=== PATIENT | female | born 1975 | race Caucasian/White ===

== ENCOUNTER 2022-06-21 10:04 | Emergency (ER) | payer OTHER, SELFPAY ==
--- NOTE | 2022-06-21 10:09 | ED.SKABFB ---
HPI - Skin/Abscess/Foreign Bdy General Chief complaint: Skin/Abscess/Foreign Body Stated complaint: Splinter in foot Time Seen by Provider: 06/21/22 10:20 Source: patient Mode of arrival: ambulatory Limitations: no limitations History of Present Illness HPI narrative: Ms. Amezcua is a 46-year-old female patient presenting to the clinic today with complaints of possible foreign body in her right foot. She reports that she got out of her pool yesterday and stepped on a stick and the stick punctured the bottom of her midfoot by her second toe. She was able to remove the stick but is concerned that there may be some remnants still in her foot. Tetanus is unknown Related Data Home Medications Medication Instructions Recorded Confirmed amitriptyline 100 mg tablet 100 mg PO ONCE 10/01/20 06/21/22 atorvastatin 20 mg tablet 20 mg PO DAILY 10/01/20 06/21/22 citalopram 40 mg tablet 40 mg PO DAILY 10/01/20 06/21/22 Allergies Allergy/AdvReac Type Severity Reaction Status Date / Time No Known Allergies Allergy Unknown Verified 06/21/22 10:27 Review of Systems Review of Systems: Pertinent positives per HPI. Patient denies any fever, chills, rash, headache, visual changes, dizziness, cough, runny nose, sore throat, shortness of breath, chest pain, palpitations, nausea, vomiting, diarrhea, constipation, abdominal pain, or any urinary issues. [facility] Past Medical History Medical History Anxiety Diabetes History of in vitro fertilization At [facility] in 2004. Hx of ectopic At by Dr. Hyde (right side). Hypercholesteremia Surgical History Surgical History Hx laparoscopic cholecystectomy 2007- by Dr. Joyce. Hx of section At [place] in 2004. Hx of hysterectomy at in [address] Kim Blanco Hx of unilateral salpingectomy Right side at [place] [address] Kim Blanco Family History Family History Father Hypertension Heart disease High cholesterol Mother Hypertension Cerebrovascular accident High cholesterol Other Cancer of kidney Diabetes mellitus Social History Social History Smoking packs per day: 0.5 Smoking cigarettes per day: 10.0 Years smoked: 26 Smoking pack-years: 13.00 Smoking status: Current every day smoker Tobacco type: cigarettes Alcohol intake: never Comments At the time of my signature, I reviewed and agree with the nursing past medical, surgical, social, and family history. There is no relevant family history pertinent to the patient complaint. Exam Narrative: General: Well-developed, well nourished, in no apparent distress Head: Normocephalic, atraumatic. Cardio: Regular rate and rhythm, s1 and s2 normal, no murmur appreciated. Resp: Clear to auscultation bilaterally, no rhonchi, rales, wheezing or rubs. Integumentary: [place], warm, and dry, intact without lesion, small puncture wound to the right distal midfoot just below the second metatarsal with mild brown possible foreign body. Area was injected with lidocaine and a small incision was made for exploring and this appears to be just pigmentation from the stick in the skin as there was no foreign body palpable CHET and Band-Aid was applied and tetanus was updated Course Course Emergency Course: Portions of this record may have been created with voice recognition software. Level of Care: Express Care Visit Vital Signs Vital signs: Vital signs reviewed MDM - Skin/Abscess/Foreign Bdy MDM Narrative Medical decision making narrative: At the time of visit patient is resting comfortably on the exam table. A small incision was made to her right plantar distal mid foot just below her second toe. No foreign body was palpated. Tetanus shot was updated. T
[2022-06-21 10:13] VITALS: BP 146/78; PULSE 97; RESP 18; TEMP 37.1; O2SAT 99
[2022-06-21] MEDS: LIDOCAINE HCL 1% LOCAL INJ 20 ML VIAL 5 ML INFILTRATE (10:31)
[2022-06-21] MEDS: TETANUS,DIPHTHERIA,AC PERTUSSIS ADULT (0.5 ML) BOOSTRIX IM (10:44)
== END 2022-06-21 10:47 | disposition home or self-care (01) ==
PROVIDERS: Emergency Provider Nurse Practitioner Family; PCP Family Medicine
DX: S91.331A Puncture wound without foreign body, right foot, initial encounter (principal); W22.8XXA Striking against or struck by other objects, initial encounter; Z23 Encounter for immunization; E11.9 Type 2 diabetes mellitus without complications; E78.00 Pure hypercholesterolemia, unspecified; F41.9 Anxiety disorder, unspecified; F17.210 Nicotine dependence, cigarettes, uncomplicated
CPT/HCPCS: 90471; 90715; 99212; G0463

== ENCOUNTER → 2022-06-25 15:49 | Outpatient (CLI) | payer OTHER, SELFPAY ==
--- NOTE | ~2022-06-25 | US_ITS ---
EXAMINATION: US soft tissue head and neck INDICATION: Palpable lump of the posterior left neck TECHNIQUE: Limited high-resolution ultrasound is performed in the area of clinical concern. COMPARISON: CT, 09/15/2018 FINDINGS: No sonographic correlate is identified for the reported palpable abnormality of the neck. N ormal subcutaneous tissues are seen. IMPRESSION: 1. No sonographic correlate for the palpable abnormality of the left neck. Reviewed, dictated and finalized at location B.
== END ==
PROVIDERS: PCP Nurse Practitioner Family; Visit Provider Nurse Practitioner Family
DX: M54.2 Cervicalgia (principal)
CPT/HCPCS: 76536

== ENCOUNTER 2024-02-18 18:28 | Emergency (ER) | payer OTHER, SELFPAY ==
--- NOTE | ~2024-02-18 | XR_ITS ---
EXAMINATION: XR hip RT 2V w AP pelvis INDICATION: Right hip pain TECHNIQUE: AP view the pelvis and two views of the right hip are obtained. COMPARISON: 09/17/2019 FINDINGS: Bone alignment is normal. There is no fracture. There is mild osteoarthritis of the sacroil iac joints. IMPRESSION: 1. No acute osseous abnormality. Reviewed, dictated and finalized at location F.
[2024-02-18 18:40] VITALS: BP 147/87; PULSE 100; RESP 16; TEMP 37; O2SAT 98
--- NOTE | 2024-02-18 18:48 | ED.EXTPRO ---
HPI - Extremity Problem General Chief complaint: Extremity Problem,Nontraumatic Stated complaint: Hip Pain Time Seen by Provider: 02/18/24 18:35 Source: patient Mode of arrival: ambulatory Limitations: no limitations History of Present Illness HPI Narrative: Patient is a 48-year-old female who presents with right hip pain for several months. Patient also reports months ago she fell and hip pain has been worse since then. Patient states hip pain is now constant and she is unable to get comfortable in bed due to pain. Patient has been taking Tylenol and ibuprofen with no relief. Patient states she does not take stronger opiates or muscle relaxers due to side effects. Patient reports pain is mostly lateral but does radiate into the groin at times. Denies any numbness, weakness or tingling to lower extremity. Patient has not been seen by PCP for symptoms. Does state PCP ordered palpation imaging that she has not completed. Patient states she has chronic back issues has had sciatica past but this feels different. Related Data Home Medications Medication Instructions Recorded Confirmed amitriptyline 100 mg tablet 100 mg PO ONCE 10/01/20 02/18/24 citalopram 40 mg tablet 40 mg PO DAILY 10/01/20 02/18/24 Allergies Allergy/AdvReac Type Severity Reaction Status Date / Time No Known Allergies Allergy Unknown Verified 02/18/24 18:32 Review of Systems Review of Systems: All systems reviewed & are unremarkable except as noted in HPI and below Constitutional: Constitutional: Denies body ache(s), Denies chills, Denies fatigue, Denies fever(s), Denies headache(s), Denies malaise and Denies weakness Eyes: Eyes: Denies blurry vision, Denies irritation and Denies loss of vision ENT: Denies otalgia, Denies headache(s), Denies nasal discharge, Denies sinus pain and Denies sore throat Cardiovascular: Cardiovascular: Denies chest pain, Denies irregular heart rhythm and Denies dyspnea Respiratory: Respiratory: Denies dyspnea Gastrointestinal: Gastrointestinal: Denies abdominal pain, Denies melena, Denies hematochezia, Denies diarrhea, Denies nausea and Denies vomiting Musculoskeletal: Musculoskeletal: Denies back pain, Denies myalgias and Reports arthralgias Integumentary/Breasts: Skin/Breast: Denies pruritus and Denies rash Neurologic: Denies headache(s), Denies loss of vision and Denies weakness Psychiatric: Psychiatric: Reports no additional psychiatric complaints Endocrine: Endocrine: Denies fatigue PMFSH Past Medical History Medical History Anxiety Diabetes History of in vitro fertilization At [facility] in 2004. Hx of ectopic At by Dr. Hyde (right side). Hypercholesteremia Surgical History Surgical History Hx laparoscopic cholecystectomy 2007- by Dr. Joyce. Hx of section At [place] in 2004. Hx of hysterectomy at in [address] Kim Blanco Hx of unilateral salpingectomy Right side at [place] [address] Kim Blanco Family History Family History Father Hypertension Heart disease High cholesterol Mother Hypertension Cerebrovascular accident High cholesterol Other Cancer of kidney Diabetes mellitus Social History Social History Smoking packs per day: 0.5 Smoking cigarettes per day: 10.0 Years smoked: 26 Smoking pack-years: 13.00 Smoking status: Current every day smoker Tobacco type: cigarettes Alcohol intake: never Comments At time of signature, agree with nursing past medical, surgical, social and family history. There is no relevant family history pertinent to the presenting complaint. Exam Const: General: cooperative, healthy appearing, comfortable, no acute distress and well nourished Nutritional Appearance: well nourished
== END 2024-02-18 19:55 | disposition home or self-care (01) ==
PROVIDERS: Emergency Provider Nurse Practitioner Family; PCP Family Medicine
DX: M70.61 Trochanteric bursitis, right hip (principal); F17.210 Nicotine dependence, cigarettes, uncomplicated; E11.9 Type 2 diabetes mellitus without complications; E78.00 Pure hypercholesterolemia, unspecified; F41.9 Anxiety disorder, unspecified
CPT/HCPCS: 73502; 99213; G0463

== ENCOUNTER 2024-03-09 08:10 | Outpatient (CLI) | payer OTHER, SELFPAY ==
--- NOTE | ~2024-03-09 | MR_ITS ---
MRI of the lumbar spine Clinical History: Degenerative disc disease Technique: Axial T2-weighted images, and sagittal T1-weighted, T2-weighted, and T2 fat-sat images wer e acquired. Findings: There are probable bilateral L5 pars interarticularis defects, with associated 9 mm anterol isthesis of L5 over S1. No acute fracture identified. No other subluxation seen. No suspicious bone m arrow signal abnormality seen. At L1-L2, there is no disc bulge or herniation. No spinal canal stenosis or neural foraminal narrowin g. At L2-L3, there is no disc bulge or herniation. No spinal canal stenosis or neural foraminal narrowin g. At L3-L4, there is mild degenerative disc narrowing. No disc bulge or herniation. No spinal canal rafaela nosis or neural foraminal narrowing. At L4-L5, there is small central disc protrusion with tiny annular fissure. There is moderate facet a rthropathy. No central canal stenosis or neural foraminal narrowing. At L5-S1, there is disc bulge/uncovering with moderate to advanced facet arthropathy. No central payton l stenosis. There is advanced bilateral neural foraminal narrowing. Paravertebral soft tissues are unremarkable. Impression: Bilateral L5 pars interarticularis defects, with 9 mm anterolisthesis of L5 over S1. Associated advan oanh bilateral neural foraminal narrowing at this level. Minimal degenerative change in the remainder of the lumbar spine. Reviewed, dictated and finalized at [facility]. Impression: Bilateral L5 pars interarticularis defects, with 9 mm anterolisthesis of L5 ove r S1. Associated advanced bilateral neural foraminal narrowing at this level. Minimal degenerative change in the remainder of the lumbar spine.
== END 2024-03-09 08:11 ==
LOC: GOSHIMG 08:11
PROVIDERS: PCP Family Medicine; Visit Provider Family Medicine
DX: M51.36 Other intervertebral disc degeneration, lumbar region (principal); M47.817 Spondylosis without myelopathy or radiculopathy, lumbosacral region
CPT/HCPCS: 72148

== ENCOUNTER 2024-06-15 10:20 | Outpatient (CLI) | payer OTHER, SELFPAY ==
--- NOTE | ~2024-06-15 | CT_ITS ---
Non-contrast CT scan of the Abdomen Clinical indication: Incisional hernia Technique: 2.5 mm axial scans were obtained through the abdomen without intravenous or oral contrast . Dose reduction technique was used on this scan by utilizing automated exposure control and iterativ e reconstruction technique. The dose-length product (DLP) was 503.42 mGy-cm. Findings: Images through the lung bases reveal small hiatal hernia. There is no evidence of renal or ureteral calculi. The kidneys and the ureters are nondilated. The liver, spleen, pancreas, and adrenals appear normal. Cholecystectomy clips are present. There is no aortic aneurysm. Visualized bowel loops are unremarkable. No ascites Impression: Small hiatal hernia. Reviewed, dictated and finalized at location . Impression: Small hiatal hernia.
== END 2024-06-15 10:21 ==
PROVIDERS: PCP Family Medicine; Visit Provider Surgery
DX: K44.9 Diaphragmatic hernia without obstruction or gangrene (principal); K43.2 Incisional hernia without obstruction or gangrene
CPT/HCPCS: 74150

== ENCOUNTER 2025-01-02 19:53 | Emergency (ER) | payer OTHER, SELFPAY ==
--- NOTE | ~2025-01-02 | XR_ITS ---
EXAM: XR hand LT min 3V DATE: 01/02/2025 20:19 HISTORY: pain base left palmar thumb s/p fall tonight . COMPARISON: None available. FINDINGS: Normal mineralization. No fracture or dislocation. No lytic or blastic lesion. Joint space s are maintained. No erosion or periosteal change. Soft tissues within normal limits. IMPRESSION: No acute osseous finding in the left hand. Reviewed, dictated and finalized at location K. ENTICE PHOTOGRAPHER
--- NOTE | 2025-01-02 20:01 | ED_ITS ---
HPI - Extremity Injury (Upper) General Chief Complaint: Extremity Injury, Lower Stated Complaint: right knee injury,left hand swollen Time Seen by Provider: 01/02/25 20:01 Source: patient, RN notes reviewed and old records reviewed Mode of arrival: ambulatory Limitations: no limitations History of Present Illness HPI narrative: Patient presents with complaints right knee abrasion and left hand swelling after slip and fall outdoors on same level surface 2 hours prior to arrival. She has not had any medication for her symptoms. She has not applied ice to the affected area. She is able to move the affected hand without difficulty, but states this does increase pain. She denies other injury or trauma. Voices no other concerns or complaints today. Related Data Home Medications ?Medication ?Instructions ?Recorded ?Confirmed ?Last Taken ?Type amitriptyline 100 mg tablet 100 mg PO ONCE 10/01/20 06/30/24 Unknown History citalopram 40 mg tablet 40 mg PO DAILY 10/01/20 06/30/24 Unknown History gabapentin 300 mg capsule 300 mg PO 06/30/24 06/30/24 Unknown History Allergies Allergy/AdvReac Type Severity Reaction Status Date / Time No Known Allergies Allergy Unknown Verified 01/02/25 20:17 Review of Systems Review of Systems: All systems reviewed & are unremarkable except as noted in HPI and below Constitutional: Constitutional: Reports no additional constitutional compl aints ENT: Reports system reviewed and no additional complaints, except as documented Cardiovascular: Cardiovascular: Reports no additional cardiovascular complaints Respiratory: Respiratory: Reports no additional respiratory complaints Gastrointestinal: Gastrointestinal: Reports no additional gastrointestinal complaints [facility] Past Medical History Medical History (Updated 01/02/25 @ 20:42 by Yecenia Bertrand APRN) Screening mammogram for breast cancer Diabetes Hx of ectopic At by Dr. Hyde (right side). History of in vitro fertilization At [facility] in 2004. Hypercholesteremia Anxiety Surgical History Surgical History (Updated 06/30/24 @ 10:06 by Mirian Cee CMA) Hx of appendectomy Hx of unilateral salpingectomy Right side at [place] [address] Kim Blanco Hx of hysterectomy at [place] [address] Kim Blanco Hx of section At [place] in 2004. Hx laparoscopic cholecystectomy 2007- by Dr. Joyce. Family History Family History Father Hypertension Heart disease High cholesterol Mother Hypertension Cerebrovascular accident High cholesterol Other Cancer of kidney Diabetes mellitus Social History Social History (Updated 06/30/24 @ 10:08 by Mirian Cee CMA) Smoking packs per day: 0.5 Smoking cigarettes per day: 10.0 Years smoked: 26 Smoking pack-years: 13.00 Smoking status: Current every day smoker Tobacco type: cigarettes Alcohol intake: never Substance use: current Substance use type: marijuana Last use: gummy for sleep Do You Feel Safe in your Home?: Yes Lack of Transportation: No Lack of Food: Never True Current Housing: I Have Housing Concerned About Future Housing: No Difficulty Paying Gas/Electric Bills: No Difficulty Paying for Meds: No Currently Unemployed: YES Education: Trade/Vocational Certificate Difficulty w/ Childcare or Family Care: No Living arrangements: with family Occupation/Education: retired Gender identity (if verbalized by the patient): Female Comments At the time of my signature, I reviewed and agree with the nursing past medical, surgical, social, and family history. There is no relevant family history pertinent to the patient complaint. Exam Const: General: cooperative, no acute distress, alert and awake Orientation/consciousness: oriented to person, oriented to place and oriented to time HENMT: Head: normal to inspection Resp: Effort & Inspection: normal respiratory effort and able to speak in complete sentences Auscultation: clear to auscultation bilaterally, no crackles, no rales, no rhonchi and no wheezes Cardio: Palpation: normal PMI Rate: regular rate Rhythm: regular rhythm Heart sounds: S1 normal heart sound present and S2 normal heart sound present Neuro: General: oriented to person, oriented to place and oriented to time Cranial nerves: Yes CN's II-XII intact bilaterally Psych: Appearance: grossly normal Thought process: Normal thought process present Insight: Good insight present (Psych) Judgement: Good judgement present (Psych) Course Course Level of Care: Express Care Visit Vital Signs Vital signs: Reviewed MDM - Extremity Injury (Upper) Imaging Data Attestation: I personally reviewed and interpreted this imaging study as follows: My impression: negative Radiologist's impression: [facility] [place] [address] [place] [id number] XRay Report Signed Patient: Celina Blood : 1975 MR#: [id number] Age: 49 Acct:[id number] Loc: [facility] ADM Date: 01/02/25Attending Dr: Ordering Physician: Yecenia Bertrand FNP Date of Service: 01/02/25 Procedure(s): XR hand LT min 3V Accession Number(s): [id number] cc: Yecenia Bertrand FNP; PHARMACEUTICAL ENGINEER PHYSICIAN~ EXAM: XR hand LT min 3V DATE: 01/02/2025 20:19 HISTORY: pain base left palmar thumb s/p fall tonight . COMPARISON: None available. FINDINGS: Normal mineralization. No fracture or dislocation. No lytic or blastic lesion. Joint spaces are maintained. No erosion or periosteal change. Soft tissues within normal limits. IMPRESSION: No acute osseous finding in the left hand. Reviewed, dictated and finalized at [facility] K. TAL DIRECTOR Please be advised this is a medical document. It is intended for [id number] communication. It is written in medical language and may contain unfamiliar abbreviations or verbiage. Medical documents are intended to carry relevant information, facts as evident, and the clinical opinion of the practitioner at the time of the encounter. This report may have been done utilizing a voice recognition system. Attempts have been made to correct errors. However, there may be uncorrected grammatical, spelling, and recognition errors present. The file time of this note does not necessarily represent the time of service. Dictated By: Virgilio Rivera MD 01/02/252031 Signed By: <Electronically signed by Virgilio Rivera MD in OV> 01/02/252032 Discharge Plan Discharge Clinical Impression: Hand pain, left, Abrasion Patient Disposition: Home, Self-Care Condition: Stable Instructions: Antibiotic Form, Abrasion (ED), P.R.I.C.E. Treatment (ED) Additional Instructions: Follow-up with primary care provider. Emergency department for any new or worse symptoms Patient Language: Surinamese Prescriptions: New naproxen [Naprosyn] 500 mg tablet 500 mg PO BID PRN (Reason: pain) Qty: 14 0RF No Action gabapentin 300 mg capsule 300 mg PO clobetasol 0.05 % ointment 1 applic topical QHS Qty: 30 0RF Rx Instructions: Apply vaginally QHS amitriptyline 100 mg tablet 100 mg PO ONCE citalopram 40 mg tablet 40 mg PO DAILY fluconazole 150 mg tablet 150 mg PO Q72H Qty: 2 0RF Rx Instructions: as a single dose Follow-up/Referrals: PHYSICIAN,PHARMACEUTICAL ENGINEER [Primary Care Provider] - 2 Weeks Time of Disposition: 20:43
[2025-01-02 20:05] VITALS: BP 150/80; PULSE 106; RESP 16; TEMP 37.3; O2SAT 99
== END 2025-01-02 20:47 | disposition home or self-care (01) ==
PROVIDERS: Emergency Provider Nurse Practitioner Family
DX: M79.642 Pain in left hand (principal); S80.211A Abrasion, right knee, initial encounter; W01.0XXA Fall on same level from slipping, tripping and stumbling without subsequent striking against object, initial encounter; E11.9 Type 2 diabetes mellitus without complications; E78.00 Pure hypercholesterolemia, unspecified; F41.9 Anxiety disorder, unspecified; F17.210 Nicotine dependence, cigarettes, uncomplicated; F12.90 Cannabis use, unspecified, uncomplicated
CPT/HCPCS: 73130; 99213; G0463

== ENCOUNTER 2025-03-08 16:17 | Emergency (ER) | payer OTHER, SELFPAY ==
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
[2025-03-08 16:25] VITALS: BP 148/80; PULSE 104; RESP 16; TEMP 37.1; O2SAT 100
--- OUTSIDE RECORDS SUMMARY | 2025-03-08 17:07 | XMS_ITS | Data Portability ---
Author Organization [facility] [place] Address [address] [place] [address] Assessment No assessment recorded. 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 (Lab), [address] , [place], [address], 03/08/2025 11:01:17 HBsAg (hepati tis B surface Ag), serum [address] [facility] (Lab), [address] , [place], [address], 03/08/2025 11:01:18 hepatit is C virus Ab, serum [address] [facility] (Lab), [address] , [place], [address], 03/08/2025 11:01:18 HIV 1+2 AB + HIV 1 p24 Ag, qualita tive immunoa ssay, serum [address] [facility] (Lab), [address] [place], [address], 03/08/2025 11:01:18 RPR (rapid plasma reagin) , serum [address] [facility] (Lab), [address], [place], [address], 03/08/2025 11:01:18 pap, IG + HR HPV - HPV regardl ess but if HPV is positiv e need subtypi ng 16,18/4 5 add G/MIGUEL/T RICH 2024 025 [facility] (Lab), [address], [place], [address], 03/08/2025 14:40:30 CMP, serum or plasma [address] [facility] (Lab), [address], [place], [address], 03/08/2025 11:01:18 lipid panel, blood [address] [facility] (Lab), [address], [place], [address], 03/08/2025 11:01:17 CBC w/ auto diff [address] [facility] (Lab), [address] [place], [address], 03/08/2025 11:01:17 HbA1c (hemogl obin A1c), blood [address] [facility] (Lab), [address], [place], [address], 03/08/2025 11:01:16 TSH, serum or plasma [address] [facility] (Lab), [address], [place], [address], 03/08/2025 11:01:16 25-hydr oxyvita min D2 + 25-hydr oxyvita min D3, QN, serum or plasma [address] [facility] (Lab), [address], [place], [address], 03/08/2025 11:01:18 unliste d lab - women's health swab plus, KING [address] [facility] (Lab), [address], [place], [address], 03/08/2025 11:09:15 Referral gastroe nterolo gist referra l [address] [facility], [address], [address], [place], [address], 03/08/2025 12:47:09 Procedures None recorde d. Surgeries None recorde d. Imaging US, pelvis, complet e 2024 [address], [address], [place], [address], 03/08/2025 11:41:00 MAMMO, screeni ng, digital , bilater al [address] [facility], [address], [address], [place], [address], 03/08/2025 11:41:00 Medication Orders clobeta lance 0.05 % topical ointmen t 2024 025 [facility], [address] [facility], [place], [address], 03/08/2025 11:36:11 Patient TargetsNo targets recorded. Patient InstructionsNo instructions recorded. 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 03/08/2025 10:36:05 010 Partial Hysterectomy completed [facility] 03/08/2025 10:36:55 009 Colonoscopy completed [facility] 03/08/2025 10:35:32 007 Appendectomy completed [facility] 03/08/2025 10:35:42 005 Caesarean Section completed [facility] 03/08/2025 10:24:20 996 Ectopic completed [facility] 03/08/2025 10:36:35 Dilation and Curettage completed [facility] 03/08/2025 10:24:20 Laparoscopy completed [facility] 03/08/2025 10:24:20 Cholecystectomy completed [facility] 03/08/2025 10:24:20 in vitro fertilization completed [facility] [employer] [address], [place], [address], [facility] 03/08/2025 10:45:23 oophorectomy completed [facility] [employer] [address], [place], [address], [facility] 03/08/2025 11:25:32 Imaging Results None recorded. Procedure Notes None recorded. Medical Equipment None Reported. Allergies No known drug allergies Medications Name Sig Start Date Stop Date Status Note LastModified by Organization Details LastModified Time citalopram 40 mg tablet TAKE 1 TABLET BY MOUTH ONCE DAILY active Not Available Not Available No t Available IBU 800 mg tablet Take 1 tablet 3 times a day by oral route. active Not Available Not Available No t Available fluconazole 150 mg tablet TAKE 1 TABLET BY MOUTH EVERY 72 HOURS A ONE TIME DOSE 03/08 completed Not Available Not Available Not Available hydrocodone 5 mg-acetamin ophen 325 mg tablet TAKE 1 TO 2 TABLETS BY MOUTH EVERY 4 TO 6 HOURS NEEDED FOR PAIN . DO NOT EXCEED 9 PER 24 HOURS 03/08 completed Not Available Not Available Not Available amoxicillin 875 mg tablet TAKE 1 TABLET BY MOUTH TWICE DAILY FOR 10 DAYS 03/08 completed Not Available Not Available Not Available gabapentin 300 mg capsule TAKE 1 CAPSULE BY MOUTH TWICE DAILY 03/08 completed Not Available Not Available Not Available clobetasol 0.05 % topical ointment APPLY A THIN LAYER TO THE AFFECTED AREA(S) BY TOPICAL ROUTE Daily as needed 2024 active Not Available Not Available Not Avai lable amitriptyli ne 100 mg tablet TAKE 1 TABLET BY MOUTH ONCE DAILY AT BEDTIME active Not Available Not Available No t Available naproxen 500 mg tablet TAKE 1 TABLET BY MOUTH TWICE DAILY NEEDED FOR PAIN 03/08 completed Not Available Not Available Not Available Vitals Date Recorded Body weight Body mass index (BMI) Body height Systolic blood pressure Diastolic blood pressure Provider Name and Address Organization Details Last Updated DateTime 03/08/2025 37012.1 g 28.3 kg/m2 157.48 cm 140 mm[Hg] 82 mm[Hg] CARLITOS Burt [facility] 10:31:14 Social History Question Answer Notes LastModified by Organizat ion Details LastModified Time Tobacco Smoking Status Current Every Day Smoker CARLITOS Burt [facility] 03/08/2025 10:34:52 Do You Have An Advance Directive? No [email or web address] Information not available 03/08/2025 What Is Your Level Of Alcohol Consumption? None [email or web address] Information not available 03/08/2025 Are You Blind Or Do You Have Difficulty Seeing? No Information not available 03/08/2025 What Is Your Level Of Caffeine Consumption? Heavy Information not available 03/08/2025 How Much Tobacco Do You Chew? None Information not available 03/08/2025 In The 14 Days Before Symptom Onset, Have You Had Close Contact With A Laboratory-confir med COVID-19 While That Case Was Ill? No [email or web address] Information not available 03/08/2025 In The 14 Days Before Symptom Onset, Have You Had Close Contact With A Person Who Is Under Investigation For COVID-19 While That Person Was Ill? No [email or web address] Information not available 03/08/2025 Have You Been To An Area Known To Be High Risk For COVID-19? No [email or web address] Information not available 03/08/2025 Are You Deaf Or Do You Have Serious Difficulty Hearing? No [email or web address] Information not available 03/08/2025 What Type Of Diet Are You Following? REGULAR [email or web address] Information not available 03/08/2025 What Is The Highest Grade Or Level Of School You Have Completed Or The Highest Degree You Have Received? 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 No [email or web address] Information not available 03/08/2025 Do You Use Protection During Sex? No [email or web address] Information not available 03/08/2025 Do You Use Your Seat Belt Or Car Seat Routinely? Yes [email or web address] Information not available 03/08/2025 Are You Sexually Active? Yes [email or web address] Information not available 03/08/2025 Do You Have Smoke And Carbon Monoxide Detectors In Your Home? Yes [email or web address] Information not available 03/08/2025 At What Age Did You Start Smoking Tobacco? 21 [email or web address] Information not available 03/08/2025 How Much Tobacco Do You Smoke? 0.5 PPD [email or web address] Information not available 03/08/2025 Do You Feel Stressed (tense, Restless, Nervous, Or Anxious, Or Unable To Sleep At Night)? [id number] [email or web address] Information not available 03/08/2025 Do You Use Any Illicit Or Recreational Drugs? No [email or web address] Information not available 03/08/2025 Do You Use Sunscreen Routinely? Yes [email or web address] Information not available 03/08/2025 Have You Used IV Drugs? No [email or web address] Information not available 03/08/2025 Do You Or Have You Ever Used Any Other Forms Of Tobacco Or Nicotine? No [email or web address] Information not available 03/08/2025 Sex: Unknown Functional Status Question Answer Note LastModified by Organizat ion Details LastModified Time Do you have difficulty walking or climbing stairs? No [email or web address] Information not available 03/08/2025 Are you able to walk? YESWOREST Information not available 03/08/2025 Are you able to care for yourself? Yes [email or web address] Information not available 03/08/2025 Do you have difficulty dressing or bathing? No [email or web address] Information not available 03/08/2025 What is your exercise level? None [email or web address] Information not available 03/08/2025 Mental Status None recorded. Family History Relationship Description Onset Age of this Age Resolved Age Notes LastModified by Organization Details LastModified Time Mother Anemia [email or web address] Not available 03/08/2025 10:24:20 Father Diabetes mellitus Not available 2024 10:24:20 Medical History Condition Response Allergies (Food, seasonal, environmental ) N Other Y Breast Cancer N Drug/Latex Allergies/Reactions N Blood Transfusion N Lung Disease N Dermatologic Disorders N Defects or Inherited Disease N Breast Problem N Gestational Diabetes N Hematologic disorders N Anesthesia Complications N History of STI N Deep Vein Thrombosis N Polycystic ovary syndrome N Anxiety Disorder N Autoimmune disease N Arthritis N Infertility N Polyps N Acid Reflux (GERD) N History of abnormal pap N Cancer N Stroke N Varicosities N Neurologic/Epilepsy N Endometriosis N High Cholesterol N Headaches N Fibromyalgia N Kidney Disease N Heart Problems N Kidney or Bladder Problems N Thyroid Problems N GI Problems N Eating Disorder N Anemia N Art (IVF or FET) N Psychiatric Illness N Ovarian Cancer N Diabetes Y Pulmonary (TB, Asthma) N Hepatitis/Liver Disease N No Past Medical History N Eczema N Urinary Tract Infection N Abuse/Domestic Violence N Asthma N Trauma/Violence N Depression/ depression N Heart Disease N Pre-Eclampsia N Hypertension N Osteoporosis N Thrombophilias N Gynecological History Statement/Question Response Date of LMP On BCP's at Conception? N STIs/STDs N Was last menstrual period normal N HPV Vaccine N Current Control Method None Age at First Child 29 Are cycles usually normal N Date of Last Colonoscopy Sexually Active? Y Date of DEXA bone scan Age of first menstrual cycle 14 Date of Last Pap Smear Sexual Problems? N Obstetrics History GPAL:G 3 P 1 0 4 1 Type Value Full Term 1 Spontaneous 2 Living 1 Ectopics 2 Total 3 Past Encounters Encounter ID Performer Location Encounter Start Date Encounter Closed Date Diagnosis/Indication Diagnosis SNOMED-CT Code Diagnosis ICD10 Code Diagnosis Note [id number] [facility] [place] [address] [address] 03/08/2025 10:22:22 03/08/2025 11:41:00 Gynecologic examination 25727372 Z01.419 WWEPap - done todaySTI screen - gc/ct/tric h testing doneHIV/He p B&C/syphil is testing orderedMam mogram - order givenColon cancer screening - referral for screening colonoscop yRoutine labs - orderedBP precaution s discussed, encouraged PCP f/uRTC in 1 yr or sooner if needed Suggested Calcium with Vitamin D daily. Patient advised to get an annual flu shot in the fall and she could obtain at local pharmacy. Also to obtain TDap vaccinatio n if you have not had one in the last 10 years. Recommend yearly mammograms . Encouraged monthly self breast exams. Encourage safe sexual practices, to use condoms and limit partners if not already in a monogamous relationsh ip. Engage in regular exercise. Avoid tobacco and illicit drugs. This lifestyle behavior pattern will lead to less health conditions and longer life span. If BMI greater than 25 dietary consult advised. All questions have been answered. Inguinal lymphadenopathy 317734595 R59.0 labs and pelvic u/s orderedRTC for MD u/s f/u to discuss results and next steps Adult heal th examination 948503623 Z00.00 Venereal d isease screening 091210657 Z11.3 Sexually t ransmitted infectious disease 6394922 A64 Vulval irritation 567196 003 N90.89 Previously diagnosed with LSrx clobetasol ointment, r/b/a reviewedva ginitis panel also sentdiscus sed vulvar biopsy if symptoms continue Time spent in visit is a total of 45 mins with at least 50% of visit consisting of counseling and review of plan of care. Screening for malignant neoplasm of breast 988614906 Z12.39 Screening for malignant neoplasm of colon 702136706 Z12.11 Pain in pelvis 70446134 R10.2 Health Concerns Section Related Observation LastModified by Organization Detai ls LastModified Time None Recorded Concern Status LastModified by Organization Details LastModified Time None Recorded Advance Directives Directive N: Payers Encounter Date Sequence Insurance Name Policy Number Policy Valles Covered Member ID Valles Member ID Guarantor Name 03/08/[address] [facility] [id number] Rishi Blood [id number] [employer]ina [employer] Notes Date Note Type Note Provider Name and Address Organization Details Recorded Time 03/08/2025 text/html 49yo [id number] hyst, unilateral oophorectomy (one ovary remains) in 2009 for pelvic pain (non-cancerous indications). No h/o abnormal paps.presents for evaluation of enlarged inguinal lymph nodeshas noticed over the past 1 yr, bilateral inguinal node enlargement. Slightly tender at times. Occasional pelvic pain that comes and goesSA with male partner, no new partnersh/o gential lichen sclerosus, used an ointment previously that helped. Occasional vulvar itching/irritation since she ran out of it. Mammogram last years agocolonoscopy last 2008has appt coming [facility] care with new PCP, has not had updated labs in a few years neg d/c, odorsneg urinary symptomsdenies irregular bowel movementsneg n/v/fneg flu-like symptoms [facility] [employer] [address], [place], [address], [facility] 03/08/2025 14:41:24 OBGyn Episode Ob Episode Information Episode Created Date Number of Fetuses Patient Bloodtype Patient rh Status Prepregnancy Weight lbs Domestic Partner Domestic Partner Phone Father Name Ict Analyst Status 03/08/20 25 1 CLOSED Fetus Data First Name Last Name Admitted to NICU Weight (g) Sex Living Outcome Pediatric Complications Fetus ID Race Codes Race Delivery Type F Full Term [id number] Primary Manolo Calculation Initial Manolo Date Initial Exam Date Initial Exam Provider Initial Ultrasound Date Last Menstrual Period Date Ultra Sound Weeks Gestation 0 Eighteen To Twenty Week Manolo Update Ultra Sound Date Fundal Height At Umbil Quickening Date Ultra Sound Latest Weeks Gestation Final Manolo Confirmed By Final Manolo Confirmed Date Final Manolo Date Ultra Sound Latest Days Gestation 0 0 Menstrual History Last Menstrual Date Menses Monthly On Bcp Conception Prior Menses Frequency Hcg Plus Date Menarche Onset Age Delivery Information Delivery Date Delivery Type Labor Anesthesia Weeks Gestation Incision Type Labor Labor Length Hrs Delivered By Post Complications Tubal Sterilization Discharge Date Comments 5 39 Discharge Information Feeding Method Contraceptive Method Maternal HG B and HCT Levels
--- OUTSIDE RECORDS SUMMARY | 2025-03-08 17:07 | XMS_ITS ---
Author Organization Unknown Medications Medication Instructions Effective Dates (start - stop) Status 0.25 MG, 0.5 MG Dose 1.5 ML semaglutide 1.34 MG/ML Pen Injector [Ozempic] [id number]:00:00.000+00:0 0 - Completed 0.25 MG, 0.5 MG Dose 1.5 ML semaglutide 1.34 MG/ML Pen Injector [Ozempic] [id number]:00:00.000+00:0 0 - Completed 0.5 ML Bordetella pertussis filamentous hemagglutinin vaccine, inactivated 0.016 MG/ML / Bordetella pertussis pertactin vaccine, inactivated 0.005 MG/ML / Bordetella pertussis toxoid vaccine, inactivated 0.016 MG/ML / diphtheria toxoid vaccine, inactivated 5 UNT/ML / tetanus toxoid vaccine, inactivated 10 UNT/ML Prefilled Syringe [Boostrix] [id number]:00:00.000+00:0 0 - Completed Patient Care team information Name Category Status Period Participants - - Proposed period not known -
--- OUTSIDE RECORDS SUMMARY | 2025-03-08 17:07 | XMS_ITS | Clinical Summary ---
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 Gender Identity Not on file Sexual Orientation Not on file Plan of Treatment Health Maintenance Due Date Last Done Comments Hepatitis C Virus (HCV) Screening 1975 Hepatitis B Immunization (1 of 3 - 19+ 3-dose series) 1996 Pap Smear 1998 Cervical Cancer Screening (CCS) 2007 HPV/Cotest 2007 Discussion re Starting/Frequency of Mammograms 2017 Colonoscopy 2022 Colorectal Cancer Screening 2022 Influenza Immunization (#1) 2024 SARS-COV-2 Immunization ( season) 2024 02/20/2021, 02/05/2021 Respiratory Syncytial Virus (RSV) Immunization (Adult) (1 - 1-dose 75+ series) 2052 DTaP/Tdap/Td Immunization Discontinued 04/16/2015 TdaP Immunization Completed 04/16/2015 Meningococcal Immunization (ACWY) Aged Out No longer eligible based on patient's age to complete this topic Pneumococcal Immunization Combined Aged Out No longer eligible based on patient's age to complete this topic Rotavirus Immunization Aged Out No lo nger eligible based on patient's age to complete this topic Insurance [employer] on file * Guarantor: [employer] Account Type Relation to Patient Date of Phone Billing Address Personal/Family Self [address] [place] [address] Member Subscriber Plan / Payer (Ef fective 2017-Present) Name:Celina Blood Relation to Subscriber:Self Name:Celina Blood Payer ID:[id number] (NAIC) Type:Not on file
--- OUTSIDE RECORDS SUMMARY | 2025-03-08 17:07 | XMS_ITS | Continuity of Care Document ---
Author Organization [facility] Address [address] [place] [address] Assessment No assessment recorded. Plan of Treatment Reminders Order Date Submit Date Provider Last Modified By Organization Details Last Modified Time Details Appointments WELL [facility]OMAN NEW 2024 09:30A M [facility] Not available Not available Not available U/S RO[facility] OILER COMPLET E 2024 11:30A M ULTRASOUND Not available Not available Not available U/S F/U 2024 01:00P M Bhupendra LANTIGUA MD Not available Not available Not available Lab hbcab (hepati tis B core Ab) igm, serum 2024 025 [facility] (Lab), [address] , [place], [address], 03/08/2025 11:01:17 HBsAg (hepati tis B surface Ag), serum 2024 025 [facility] (Lab), [address] , [place], [address], 03/08/2025 11:01:18 hepatit is C virus Ab, serum 2024 025 [facility] (Lab), [address] , [place], [address], 03/08/2025 11:01:18 HIV 1+2 AB + HIV 1 p24 Ag, qualita tive immunoa ssay, serum 2024 025 [facility] (Lab), [address] [place], [address], 03/08/2025 11:01:18 RPR (rapid plasma reagin) , serum 2024 025 [facility] (Lab), [address], [place], [address], 03/08/2025 11:01:18 pap, IG + HR HPV - HPV regardl ess but if HPV is positiv e need subtypi ng 16,18/4 5 add G/MIGUEL/T RICH 2024 025 [facility] (Lab), [address], [place], [address], 03/08/2025 14:40:30 CMP, serum or plasma 2024 025 [facility] (Lab), [address], [place], [address], 03/08/2025 11:01:18 lipid panel, blood 2024 025 [facility] (Lab), [address], [place], [address], 03/08/2025 11:01:17 CBC w/ auto diff 2024 025 [facility] (Lab), [address], [place], [address], 03/08/2025 11:01:17 HbA1c (hemogl obin A1c), blood 2024 025 [facility] (Lab), [address], [place], [address], 03/08/2025 11:01:16 TSH, serum or plasma 2024 025 [facility] (Lab), [address], [place], [address], 03/08/2025 11:01:16 25-hydr oxyvita min D2 + 25-hydr oxyvita min D3, QN, serum or plasma 2024 025 [facility] (Lab), [address], [place], [address], 03/08/2025 11:01:18 unliste d lab - women's health swab plus, KING 2024 025 [facility] (Lab), [address], [place], [address], 03/08/2025 11:09:15 Referral gastroe nterolo gist referra l [address] [facility], [address], [address], [place], [address], 03/08/2025 12:47:09 Procedures None recorde d. Surgeries None recorde d. Imaging US, pelvis, complet e 2024 [address]25 [address], [address], [place], [address], 03/08/2025 11:41:00 MAMMO, screeni ng, digital , bilater al [address] [facility], [address], [place], [address], 03/08/2025 11:41:00 Medication Orders clobeta lance 0.05 % topical ointmen t 2024 025 [facility], [place], [address], 03/08/2025 11:36:11 Patient TargetsNo targets recorded. Patient InstructionsNo instructions recorded. 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 03/08/2025 10:36:05 010 Partial Hysterectomy completed [facility] 03/08/2025 10:36:[address] [facility] 03/08/2025 10:35:32 [address] [facility] 03/08/2025 10:35:42 005 Caesarean Section completed [facility] 03/08/2025 10:24:[address] [facility] 03/08/2025 10:36:35 Dilation and Curettage completed [facility] 03/08/2025 10:24:[address] [facility] 03/08/2025 10:24:[address] [facility] 03/08/2025 10:24:20 in vitro fertilization completed [facility] [address], [place], [address], [facility] 03/08/2025 10:45:23 oophorectomy completed [facility] [address], [place], [address], [facility] 03/08/2025 11:25:32 Imaging Results None recorded. [...] Address Organization Details Last Updated DateTime 03/08/2025 78071.1 g 28.3 kg/m2 157.48 cm 140 mm[Hg] 82 mm[Hg] CARLITOS Burt [facility] 10:31:14 Social History Question Answer Notes LastModified by Organizat ion Details LastModified Time Tobacco Smoking Status Current Every Day Smoker CARLITOS Burt [facility] 03/08/2025 10:34:52 Do You Have An Advance Directive? No [email or web address] Information not available 03/08/2025 What Is Your Level Of Alcohol Consumption? None [email or web address] Information not available 03/08/2025 Are You Blind Or Do You Have Difficulty Seeing? No [email or web address] Information not available 03/08/2025 What Is Your Level Of Caffeine Consumption? Heavy [email or web address] Information not available 03/08/2025 How Much Tobacco Do You Chew? None Information not available 03/08/2025 In The 14 Days Before Symptom Onset, Have You Had Close Contact With A Laboratory-confir med COVID-19 While That Case Was Ill? No [email or web address] Information not available 03/08/2025 In The 14 Days Before Symptom Onset, Have You Had Close Contact With A Person Who Is Under Investigation For COVID-19 While That Person Was Ill? No [email or web address] Information not available 03/08/2025 Have You Been To An Area Known To Be High Risk For COVID-19? No [email or web address] Information not available 03/08/2025 Are You Deaf Or Do You Have Serious Difficulty Hearing? No [email or web address] Information not available 03/08/2025 What Type Of Diet Are You Following? REGULAR [email or web address] Information not available 03/08/2025 What Is The Highest Grade Or Level Of School You Have Completed Or The Highest Degree You Have Received? 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 No [email or web address] Information not available 03/08/2025 Do You Use Protection During Sex? No [email or web address] Information not available 03/08/2025 Do You Use Your Seat Belt Or Car Seat Routinely? Yes [email or web address] Information not available 03/08/2025 Are You Sexually Active? Yes [email or web address] Information not available 03/08/2025 Do You Have Smoke And Carbon Monoxide Detectors In Your Home? Yes [email or web address] Information not available 03/08/2025 At What Age Did You Start Smoking Tobacco? 21 [email or web address] Information not available 03/08/2025 How Much Tobacco Do You Smoke? 0.5 PPD [email or web address] Information not available 03/08/2025 Do You Feel Stressed (tense, Restless, Nervous, Or Anxious, Or Unable To Sleep At Night)? [id number] [email or web address] Information not available 03/08/2025 Do You Use Any Illicit Or Recreational Drugs? No [email or web address] Information not available 03/08/2025 Do You Use Sunscreen Routinely? Yes [email or web address] Information not available 03/08/2025 Have You Used IV Drugs? No [email or web address] Information not available 03/08/2025 Do You Or Have You Ever Used Any Other Forms Of Tobacco Or Nicotine? No [email or web address] Information not available 03/08/2025 Sex: Unknown Functional Status Question Answer Note LastModified by Organizat ion Details LastModified Time Do you have difficulty walking or climbing stairs? No Information not available 03/08/2025 Are you able to walk? [email or web address] Information not available 03/08/2025 Are you able to care for yourself? Yes [email or web address] Information not available 03/08/2025 Do you have difficulty dressing or bathing? No Information not available 03/08/2025 What is your exercise level? None Information not available 03/08/2025 Mental Status None recorded. Family History Relationship Description Onset Age of this Age Resolved Age Notes LastModified by Organization Details LastModified Time Mother Anemia [email or web address] Not available 03/08/2025 10:24:20 Father Diabetes mellitus [email or web address] Not available 2024 10:24:20 Medical History Condition Response Other Y Blood Transfusion N Dermatologic Disorders N Gestational Diabetes N Anxiety Disorder N Autoimmune disease N Arthritis N Polyps N Infertility N Acid Reflux (GERD) N Cancer N Varicosities N Stroke N Neurologic/Epilepsy N Fibromyalgia N Headaches N Kidney Disease N Heart Problems N Kidney or Bladder Problems N Eating Disorder N Art (IVF or FET) N Hepatitis/Liver Disease N No Past Medical History N Urinary Tract Infection N Asthma N Trauma/Violence N Thrombophilias N Allergies (Food, seasonal, environmental ) N Breast Cancer N Drug/Latex Allergies/Reactions N Lung Disease N Defects or Inherited Disease N Breast Problem N Hematologic disorders N Anesthesia Complications N History of STI N Deep Vein Thrombosis N Polycystic ovary syndrome N History of abnormal pap N Endometriosis N High Cholesterol N Thyroid Problems N GI Problems N Anemia N Psychiatric Illness N Ovarian Cancer N Diabetes Y Pulmonary (TB, Asthma) N Eczema N Abuse/Domestic Violence N Depression/ depression N Heart Disease N Pre-Eclampsia N Hypertension N Osteoporosis N Gynecological History Statement/Question Response Date of [...] SNOMED-CT Code Diagnosis ICD10 Code Diagnosis Note [id number] [facility] [address] [address] 03/08/2025 10:22:22 03/08/2025 11:41:00 Gynecologic examination 88289646 Z01.419 WWEPap - done todaySTI screen - [...] All questions have been answered. Inguinal lymphadenopathy 232671075 R59.0 labs and pelvic u/s orderedRTC for MD u/s f/u to discuss results and next steps Adult heal th examination 436434270 Z00.00 Venereal d isease screening 376049371 Z11.3 Sexually t ransmitted infectious disease 9869065 A64 Vulval irritation 901696 003 N90.89 Previously diagnosed with LSrx clobetasol ointment, r/b/a reviewedva ginitis panel also sentdiscus sed vulvar biopsy if symptoms continue Time spent in visit is a total of 45 mins with at least 50% of visit consisting of counseling and review of plan of care. Screening for malignant neoplasm of breast [id number] Z12.39 Screening for malignant neoplasm of colon 010330388 Z12.11 Pain in pelvis 85201993 R10.2 Health Concerns Section Related Observation LastModified by Organization Detai ls LastModified Time None Recorded Concern Status LastModified by Organization Details LastModified Time None Recorded Payers Encounter Date Sequence Insurance Name Policy Number Policy Valles Covered Member ID Valles Member ID Guarantor Name 03/08/2025 1 [facility] [id number] Rishi Blood [id number] Celina Jeremi Notes Date Note Type Note Provider Name and Address Organization Details Recorded Time 03/08/2025 text/html 49yo [id number] hyst, unilateral oophorectomy (one ovary remains) in [...] agocolonoscopy last 2008has appt coming up to est care with new PCP, has not had updated labs in a few years neg d/c, odorsneg urinary symptomsdenies irregular bowel movementsneg n/v/fneg flu-like symptoms [facility] [address], [place], [address], [place] [facility] 03/08/2025 14:41:24 OBGyn Episode No OBEpisode recorded.
--- OUTSIDE RECORDS SUMMARY | 2025-03-08 17:07 | XMS_ITS | Data Portability ---
Author Organization [facility] [employer], Main Office Address [address] [place] [address] Assessment No assessment recorded. Plan of Treatment Reminders Order Date Submit Date Provider Last Modified By Organization Details Last Modified Time Details Appointments Any 30 2024 02:00P JEAN PAUL Fiore Not available Not available Not available Lab TSH, serum or plasma 2023 024 77 [facility] (Lab), [address] [place], [address], 07/08/2024 16:29:03 T3, total, serum 20[email or web address] [place] [address] (Lab), [address] [place], [address], 07/08/2024 16:29:04 glycohemo globin, total, blood 20[email or web address] [place] [address] (Lab), [address] [place], [address], 07/08/2024 16:29:04 Referral None recorded. Procedures None recorded. Surgeries None recorded. Imaging MRI, lumbar spine, w/o contrast - *Please call pt to schedule* [address] (Imaging), [address] [place] [address] [address], [place], [address], 03/09/2024 11:30:18 XR, shoulder, 2 or more view 2022 023 [email or web address] 56 Not available 06/29/2023 09:22:24 US, neck, soft tissue 2022 023 [email or web address] 56 [facility], [address], [place] [address], [place], [address], 04/28/2023 11:40:17 Medication Orders gabapenti n 300 mg capsule 2023 024 [facility], [address] [place] [address], [address], 03/03/2024 11:39:46 prednison e 20 mg tablet [address] [facility], [address] [place] [address], [address], 04/04/2024 16:50:28 prednison e 20 mg tablet [address] [facility], [facility] [place], [address], 04/04/2024 16:50:28 prednison e 20 mg tablet [address] [facility], [facility] [place], [address], 04/04/2024 16:50:28 Patient TargetsNo targets recorded. Patient Instructions Encounter Date Encounter Id Patient Instructions Last Modified By Organization Details Last Modified Time 04/17/2023 [id number] shoulder bursiti s: exercises [email or web address] Not available 04/17/2023 11:03:10 06/06/2024 [id number] Health promotion discussed including healthy diet and exercise recommendations. Also encouraged yearly eye examinations and twice yearly dental examinations/cleani ngs. Patient's vaccine status was reviewed and recommendations were made. [email or web address] Not available 06/06/2024 11:20:35 Reason for Referral None Reported. Results Created Date Observation Date Name Description Value Unit Range Abnormal Flag Note LastModifiedBy Organization Detail LastModifiedTime 02/18/2002/18/2024 XR, hip + pelvi s, bilat eral, 3 or 4 view No observ ation record ed. [address], [place], [address], 03/09/2024 11:28:05 03/09/20 24 03/09/2024 MRI, lumba r spine , w/o contr ast No observ ation record ed. [address] [facility] [address], [place], [address], 04/15/2024 14:38:03 06/15/20 24 06/15/2024 CT, abdom en, w/o contr ast No observ ation record ed. [email or web address] [facility] [address] [facility], [place], [address], 07/04/2024 11:53:19 Result Notes None recorded. Problems Name Problem SNOMED Code Status Onset Date Resolution Date Notes Provider Name and Address Organization Details Recorded Time Edema of lower extremity 823173872 Active Not Available [facility] 3 07:28:47 Injury of lower leg 446687281 Active Not Available [facility] 3 07:28:47 Spinal stenosis of lumbar region 31937358 Active 2020 Not Available [facility] 3 07:28:47 Steatosis of liver 555326742 Active 2020 Not Available [facility] 3 07:28:47 Panic attack 120449226 Active Not Available [facility] 3 07:28:47 Increased blood pressure 25927085 Active Not Available [facility] 3 07:28:47 Headache 73183800 Active Not Available [facility] 3 07:28:48 Edema 781918938 Active Not Available [facility] 3 07:28:48 Malaise and fatigue 505609128 Active Not Available [facility] 3 07:28:48 Chest pain 89652493 Active Not Available [facility] 3 07:28:48 Laceration - injury 454807525 Active Not Available [facility] 3 07:28:48 Vitamin D deficiency 36809664 Active 2016 Not Available [facility] 3 07:28:48 Hiatal hernia with gastroesop hageal reflux 908686162 Active 2020 Not Available [facility] 3 07:28:48 Multiple atypical melanocyti c nevi 335477196 Active Not Available [facility] 3 07:28:48 Hernia of anterior abdominal wall 427835423 Active 2020 Not Available [facility] 3 07:28:49 Altered mental status 987165238 Active Not Available [facility] 3 07:28:49 Eczema 64450123 Active Not Available [facility] 3 07:28:49 Herpes zoster 2144512 Active Not Available [facility] 3 07:28:49 Carpal tunnel syndrome 74980237 Active Not Available [facility] 3 07:28:49 Essential hypertensi on 84983122 Active Not Available [facility] 3 07:28:49 Visual disturbanc e 56142339 Active Not Available [facility] 3 07:28:49 Muscle pain 74880178 Active Not Available [facility] 3 07:28:50 Diabetes mellitus 17791952 Active 2019 Not Available [facility] 3 07:28:50 Hepatomega ly 82658184 Active 2020 Not Available [facility] 3 07:28:50 Hiatal hernia 13810547 Active Not Available [facility] 3 07:28:50 Heart murmur 63642095 Active Not Available [facility] 3 07:28:50 Tobacco dependence syndrome 40069471 Active Not Available [facility] 3 07:28:50 Neoplasm of uncertain behavior of skin 16907934 Active Not Available [facility] 3 07:28:51 Primary fibromyalg ia syndrome 75978557 Active Not Available [facility] 3 07:28:51 Migraine 94706916 Active 2022 JARED Amor [address] [facility], [address], [address] , [facility], [facility] 3 08:43:45 Cervical lymphadeno leon 731682714 Active 2022 JARED Amor [address], [place], [address] , [facility] 3 11:00:21 Pain of right shoulder joint 5663327895985 9100 Active 2022 JARED Amor [address], [address], [place], [address] , [facility], [facility] 3 11:01:55 Shoulder joint pain 298201742 Active 2022 CLAUDE Storm [address], [address], [place], [address] , [facility] 3 11:45:14 Bilateral hip joint pain 3882507594817 9100 Active 2022 Ashlie Coe MD [address], [address], [place], [address] , [facility], [facility] 3 10:11:01 Degenerati on of lumbar interverte bral disc 31931825 Active 2023 Ashlie Coe MD [address], [address], [place], [address] , [facility], [facility] 4 11:35:29 Lumbar spondylosi s 967968175 Active 2023 Ashlie Coe MD [address], [address], [place], [address] , [facility], [facility] 4 15:46:06 Abnormal weight 66473371 Active 2023 Apurva Erickson RN [facility], [facility] 4 11:01:49 Unintentio nal weight loss 284780376 Active 2023 CLAUDE [place] [address], [address], [place], [address] , [place] [facility] 4 11:05:06 Type 2 diabetes mellitus 00555054 Active 2023 JEAN PAUL [place] [address] [place] [address], [place], [address] , [facility] [employer] 4 11:07:49 Problem Notes None recorded. Procedures Surgical History Date Name Laterality Status Provider Name and Address Organization Details Recorded Time Cholecystectomy completed Not Available [facility] 01/28/2023 07:23:40 Appendectomy completed Not Available [facility] 01/28/2023 07:23:40 [employer] Surgery completed Not Available [facility] 01/28/2023 07:23:40 Hernia Repair completed Not Available [facility] 01/28/2023 07:23:40 Hysterectomy, Partial completed Not Available [facility] 01/28/2023 07:23:40 Imaging Results Imaging Date Name Status LastModified by Organiz ation Details LastModified Time 02/18/2024 XR, hip + pelvis, bilateral, 3 or 4 view completed [place] [address] [facility] [address], [place], [address], 03/09/2024 11:28:05 03/09/2024 MRI, lumbar spine, w/o contrast completed [address] [facility] [address], [place], [address], 04/15/2024 14:38:03 06/15/2024 CT, abdomen, w/o contrast completed [address] [facility] [address], [address], 07/04/2024 11:53:19 Procedure Notes None recorded. Medical Equipment None Reported. Allergies No known drug allergies Medications Name Sig Start Date Stop Date Status Note LastModified by Organization Details LastModified Time cyclobenzap rine 10 mg tablet Take 1 tablet 3 times a day by oral route as needed. 02/25 completed Not Available Not Available Not Available atorvastati n 40 mg tablet Take 1 tablet every day by oral route. active Not Available Not Available No t Available metformin 500 mg tablet TAKE 1 TABLET BY MOUTH TWICE DAILY 04/14 completed Not Available Not Available Not Available Augmentin 875 mg-125 mg tablet 1 po bid x 7 days 03/07 completed Not Available Not Available Not Available Xylocaine with Epinephrine 2 %-1:100,000 injection solution 1 ml sc x 1 09/09 completed Not Available Not Available Not Available nystatin 100,000 unit/mL oral suspension Take 10 mL 4 times a day by oral route for 7 days. active Not Available Not Available No t Available atorvastati n 20 mg tablet Take 1 tablet by mouth once daily active Not Available Not Available No t Available albuterol sulfate 2.5 mg/3 mL (0.083 %) solution for nebulizatio n Inhale 3 mL 4 times a day by nebulizat ion route as needed. 03/07 completed Not Available Not Available Not Available citalopram 40 mg tablet TAKE 1 TABLET BY MOUTH ONCE DAILY active Not Available Not Available No t Available azithromyci n 250 mg tablet TAKE 2 TABLETS (500 MG) BY ORAL ROUTE ONCE DAILY FOR 1 DAY THEN 1 TABLET (250 MG) BY ORAL ROUTE ONCE DAILY FOR 4 DAYS active Not Available Not Available No t Available alprazolam 1 mg tablet Take 1 tablet 3 times a day by oral route as needed. 12/14 completed Not Available Not Available Not Available tizanidine 4 mg tablet TAKE ONE TABLET BY MOUTH EVERY 8 HOURS NEEDED 03/07 completed Not Available Not Available Not Available fluconazole 150 mg tablet TAKE 1 TABLET BY MOUTH EVERY 72 HOURS A ONE TIME DOSE active Not Available Not Available No t Available citalopram 10 mg tablet Take 1.5 tablets every day by oral route for 90 days. 12/14 completed Not Available Not Available Not Available valacyclovi r 1 gram tablet Take 1 tablet every 12 hours by oral route for 7 days. active Not Available Not Available No t Available hydrocodone 5 mg-acetamin ophen 325 mg tablet TAKE 1 TO 2 TABLETS BY MOUTH EVERY 4 TO 6 HOURS NEEDED FOR PAIN . DO NOT EXCEED 9 PER 24 HOURS active Not Available Not Available No t Available Keflex 500 mg capsule Take 1 capsule every 12 hours by oral route for 7 days. 06/12 completed Not Available Not Available Not Available ondansetron HCl 8 mg tablet Take 1 tablet 3 times a day by oral route as needed. active Not Available Not Available No t Available glipizide ER 10 mg tablet, extended release 24 hr TAKE 1 TABLET BY MOUTH ONCE DAILY 04/14 completed Not Available Not Available Not Available phenazopyri dine 200 mg tablet Take 1 tablet 3 times a day by oral route for 2 days. 12/14 completed Not Available Not Available Not Available prednisone 20 mg tablet TAKE 3 TABLETS BY MOUTH ONCE DAILY FOR 3 DAYS, THEN 2 TABS ONCE DAILY FOR 3 DAYS, THEN 1 TAB ONCE DAILY FOR 3 DAYS, TEHN 1/2 (ONE-HALF ) TAB ONCE DAILY FOR 3 DAYS 04/04 completed Not Available Not Available Not Available Tubersol 5 tub. unit/0.1 mL intradermal injection solution Inject 0.1 mL by intraderm al route. active 2nd TB test Not Available Not Available Not Available terconazole 0.8 % vaginal cream 12/14 completed Not Available Not Available Not Available sumatriptan 50 mg tablet TAKE 1 TABLET BY MOUTH ONCE DAILY NEEDED active Not Available Not Available No t Available diphenoxyla te-atropine 2.5 mg-0.025 mg tablet TAKE 1 TO 2 TABLETS BY MOUTH EVERY 6 HOURS NEEDED FOR DIARRHEA 04/14 completed Not Available Not Available Not Available topiramate 25 mg tablet 1 po qhs x 7 days then increase to 1 po bid x 7 days then 1 po qAM and 2 po qhs x 7 days then 2 po bid active Not Available Not Available No t Available metronidazo le 500 mg tablet Take 1 tablet twice a day by oral route for 7 days. active Not Available Not Available No t Available phentermine 37.5 mg tablet TAKE 1 TABLET BY MOUTH ONCE DAILY active Not Available Not Available No t Available acetaminoph en 300 mg-codeine 30 mg tablet TK 1 T PO Q 4 TO 6 HOURS PRN 12/14 completed Not Available Not Available Not Available sulfamethox azole 800 mg-trimetho prim 160 mg tablet Take 1 tablet every 12 hours by oral route for 3 days. 12/14 completed Not Available Not Available Not Available hydrocodone 10 mg-acetamin ophen 325 mg tablet 04/08 completed Not Available Not Available Not Available omeprazole 40 mg capsule,del ayed release Take 1 capsule every day by oral route. active Not Available Not Available No t Available tramadol 50 mg tablet TAKE 1 TABLET BY MOUTH EVERY 6 HOURS NEEDED 06/18 completed Not Available Not Available Not Available amitriptyli ne 50 mg tablet Take 1 tablet every day by oral route. 09/09 completed Not Available Not Available Not Available alprazolam 0.5 mg tablet TAKE 1 TO 2 TABLETS BY MOUTH TWICE DAILY NEEDED 04/14 completed Not Available Not Available Not Available amoxicillin 875 mg tablet TAKE 1 TABLET BY MOUTH TWICE DAILY FOR 10 DAYS active Not Available Not Available No t Available citalopram 20 mg tablet TAKE 1 TABLET BY MOUTH ONCE DAILY active Not Available Not Available No t Available amitriptyli ne 25 mg tablet TAKE ONE TABLET BY MOUTH ONCE DAILY AT BEDTIME 07/07 completed Not Available Not Available Not Available dicyclomine 20 mg tablet Take 1 tablet 4 times a day by oral route. active Not Available Not Available No t Available Kenalog 10 mg/mL suspension for injection In office injection administe red by the provider 05/01 completed [facility]: 0003- [phone]- 20 Not Available Not Available Not Available pantoprazol e 40 mg tablet,curt yed release active Not Available Not Available Not Available triamcinolo ne acetonide 0.1 % topical ointment Apply 1 applicati on twice a day by topical route as needed. 03/07 completed Not Available Not Available Not Available nystatin 100,000 unit/gram topical cream APPLY TO THE AFFECTED AREA(S) BY TOPICAL ROUTE 2 TIMES PER DAY 09/09 completed Not Available Not Available Not Available buspirone 10 mg tablet TAKE 1 TABLET BY MOUTH TWICE DAILY NEEDED 04/14 completed Not Available Not Available Not Available lidocaine 5 % topical patch active Not Available Not Available Not Available gabapentin 300 mg capsule TAKE 1 CAPSULE BY MOUTH TWICE DAILY active Not Available Not Available No t Available omeprazole 20 mg capsule,del ayed release TAKE 1 CAPSULE BY MOUTH ONCE DAILY 12/19 completed Not Available Not Available Not Available diclofenac sodium 75 mg tablet,curt yed release Take 1 tablet twice a day by oral route as needed. 03/07 completed Not Available Not Available Not Available hydrocodone 5 mg-acetamin ophen 500 mg tablet TK 1 T PO Q 6 H PRN P active Not Available Not Available No t Available hydrochloro thiazide 25 mg tablet Take 1 tablet every day by oral route. 09/09 completed Not Available Not Available Not Available furosemide 20 mg tablet TAKE 1 TABLET BY MOUTH ONCE DAILY 12/19 completed Not Available Not Available Not Available ergocalcife rol (vitamin D2) 1,250 mcg (50,000 unit) capsule Take 1 capsule every week by oral route for 28 days. 08/21 completed Not Available Not Available Not Available clobetasol 0.05 % topical ointment APPLY OINTMENT VAGINALLY AT BEDTIME active Not Available Not Available No t Available albuterol sulfate HFA 90 mcg/actuati on aerosol inhaler Inhale 2 puffs every 4 hours by inhalatio n route. 03/07 completed Not Available Not Available Not Available ondansetron 4 mg disintegrat ing tablet active Not Available Not Available N ot Available metformin ER 500 mg tablet,exte nded release 24 hr Take 2 tablets twice a day by oral route with meals for 90 days. active Not Available Not Available No t Available amitriptyli ne 100 mg tablet Take 1 tablet by mouth once daily 2024 active Not Available Not Available Not Avai lable dicyclomine 10 mg capsule active Not Available Not Available Not Available Blood Glucose Test strips test once daily dx e11.9 active Not Available Not Available No t Available cyclobenzap rine 5 mg tablet Take 1 tablet 3 times a day by oral route as needed. active Not Available Not Available No t Available bupropion HCl XL 150 mg 24 hr tablet, extended release TAKE 1 TABLET BY MOUTH ONCE DAILY 04/14 completed Not Available Not Available Not Available topiramate 50 mg tablet 1 po bid active Not Available Not Available Not Available metformin ER 1,000 mg tablet,exte nded release 24hr (osmotic) Take 1 tablet twice a day by oral route for 90 days. active Not Available Not Available No t Available duloxetine 30 mg capsule,del ayed release Take 1 capsule every day by oral route. 02/12 completed Not Available Not Available Not Available duloxetine 60 mg capsule,del ayed release active Not Available Not Available Not Available Lyrica 75 mg capsule Take 1 capsule twice a day by oral route. 09/09 completed Not Available Not Available Not Available lidocaine (PF) 10 mg/mL (1 %) injection solution In office injection administe red by the provider 05/01 completed [facility]: 0409- [phone]- 17 Not Available Not Available Not Available Trulicity 0.75 mg/0.5 mL subcutaneou s pen injector Inject by subcutane ous route for 28 days. active Not Available Not Available No t Available Ozempic 0.25 mg or 0.5 mg (2 mg/1.5 mL) subcutaneou s pen injector INJECT 0.25 MG SUBCUTANE OUSLY WEEKLY active Not Available Not Available No t Available OneTouch Ultra Blue Test Strip USE 1 STRIP TO CHECK GLUCOSE ONCE DAILY active Not Available Not Available No t Available OneTouch Ultra2 Meter USE 1 TO CHECK GLUCOSE ONCE DAILY dx e11.9 active Not Available Not Available No t Available OneTouch Delica Plus Lancet 30 gauge active Not Available Not Available Not Available Vitals Date Recorded Body height Body mass index (BMI) Body weight Body temperature Oxygen saturation Oxygen saturation in Arterial blood by Pulse oximetry Heart rate Systolic blood pressure Diastolic blood pressure Provider Name and Address Organization Details Last Updated DateTime 3 157.48 cm 31.3 kg/m2 75122.3 g 98.3 [degF] 98 % 98 % 92 /min 126 mm[Hg] 70 mm[Hg] Sandra Cee CMA [facility] [employer] [facility] 3 10:49:18 Date Recorded Body height Body mass index (BMI) Body weight Body temperature Oxygen saturation Oxygen saturation in Arterial blood by Pulse oximetry Heart rate Systolic blood pressure Diastolic blood pressure Provider Name and Address Organization Details Last Updated DateTime 3 157.48 cm 30.7 kg/m2 74046.5 2 g 98.2 [degF] 98 % 98 % 109 /min 122 mm[Hg] 78 mm[Hg] Sandra Cee CMA [facility] [employer] [facility] 3 11:25:34 Date Recorded Body height Body mass index (BMI) Body weight Body temperature Heart rate Oxygen saturation Oxygen saturation in Arterial blood by Pulse oximetry Systolic blood pressure Diastolic blood pressure Provider Name and Address Organization Details Last Updated DateTime 4 157.48 cm 29.1 kg/m2 00892.1 9 g 98 [degF] 127 /min 97 % 97 % 160 mm[Hg] 74 mm[Hg] Viraj Lowe RN [facility] [employer] [facility] 4 11:09:00 Date Recorded Body height Body mass index (BMI) Body weight Heart rate Oxygen saturation Oxygen saturation in Arterial blood by Pulse oximetry Systolic blood pressure Diastolic blood pressure Provider Name and Address Organization Details Last Updated DateTime 4 157.48 cm 29.3 kg/m2 15225.7 8 g 103 /min 98 % 98 % 136 mm[Hg] 82 mm[Hg] Viraj Lowe RN [facility] [employer] 4 16:43:33 Date Recorded Body temperature Provider Name a nd Address Organization Details Last Updated DateTime 04/04/2024 98.3 [degF] Ashlie Coe MD [address] [facility], [facility] [address], [place], [address], [place] [employer] [facility] [employer] 04/04/2024 16:45:15 Date Recorded Body height Body mass index (BMI) Body weight Body temperature Heart rate Respiratory rate Oxygen saturation Oxygen saturation in Arterial blood by Pulse oximetry Systolic blood pressure Diastolic blood pressure Provider Name and Address Organization Details Last Updated DateTime 4 157.48 cm 28.7 kg/m2 52392 g 98.3 [degF] 87 /min 16 /min 98 % 98 % 138 mm[Hg] 84 mm[Hg] Apurva Erickson RN [facility] [employer] 4 11:03:17 Social History Question Answer Notes LastModified by Organizat ion Details LastModified Time Tobacco Smoking Status Current Every Day Smoker Not Available [facility] 01/28/2023 07:22:59 Do You Have An Advance Directive? No [id number] Information not available 01/28/2023 What Is Your Level Of Alcohol Consumption? None [id number] Information not available 01/28/2023 Do You Wear A Helmet When Biking? No [id number] Information not available 01/28/2023 What Is Your Level Of Caffeine Consumption? Moderate [id number] Information not available 01/28/2023 In The 14 Days Before Symptom Onset, Have You Had Close Contact With A Laboratory-confi rmed COVID-19 While That Case Was Ill? No [id number] Information not available 01/28/2023 In The 14 Days Before Symptom Onset, Have You Had Close Contact With A Person Who Is Under Investigation For COVID-19 While That Person Was Ill? No [id number] Information not available 01/28/2023 What Type Of Diet Are You Following? REGULAR [id number] Information not available 01/28/2023 What Is The Highest Grade Or Level Of School You Have Completed Or The Highest Degree You Have Received? [id number] Information not available 01/28/2023 What Is Your Occupation? [employer] [id number] Information not available 01/28/2023 What Is The Fluoride Status Of Your Home? Unknown [id number] Information not available 01/28/2023 Are There Any Guns Present In Your Home? No [id number] Information not available 01/28/2023 Do You Use Insect Repellent Routinely? Yes [id number] Information not available 01/28/2023 Where Do You Live? [place] MIGRATION.[id number] Information not available 01/28/2023 What Was The Date Of Your Most Recent Tobacco Screening? 05/01/2021 [id number] Information not available 01/28/2023 Do You Have Any Pets? Yes [id number] Information not available 01/28/2023 What Is Your Relationship Status? [id number] Information not available 01/28/2023 Do You Use Your Seat Belt Or Car Seat Routinely? Yes [id number] Information not available 01/28/2023 Do You Have Smoke And Carbon Monoxide Detectors In Your Home? Yes [id number] Information not available 01/28/2023 At What Age Did You Start Smoking Tobacco? 22 [id number] Information not available 01/28/2023 Are You Passively Exposed To Smoke? No [id number] Information not available 01/28/2023 Are There Any Smokers In Your House? No [id number] Information not available 01/28/2023 How Much Tobacco Do You Smoke? 0.5 PPD [id number] Information not available 01/28/2023 Do You Participate In Social Media? Yes [id number] Information not available 01/28/2023 Do You Feel Stressed (tense, Restless, Nervous, Or Anxious, Or Unable To Sleep At Night)? [id number] [id number].02861 [id number] Information not available 01/28/2023 Do You Use Sunscreen Routinely? Yes [id number].05326 [id number] Information not available 01/28/2023 How Many Years Have You Smoked Tobacco? 25 [id number].46374 [id number] Information not available 01/28/2023 Do You Have Any Dietary Restrictions? No [id number].15856 [id number] Information not available 01/28/2023 Sex: Unknown Functional Status Question Answer Note LastModified by Organizat ion Details LastModified Time What is your exercise level? None [id number] Information not available 01/28/2023 Mental Status None recorded. Family History Relationship Description Onset Age of this Age Resolved Age Notes LastModified by Organization Details LastModified Time Maternal Grandmother Malignant tumor of lung [email or web address] Not available 2023 16:39:52 Maternal Grandmother Malignant neoplasm of liver [email or web address] Not available 2023 16:39:52 Maternal Grandmother Malignant tumor of colon [email or web address] Not available 2023 16:39:53 Maternal Grandmother Malignant tumor of kidney [email or web address] Not available 2023 16:39:53 Father Diabetes mellitus [id number] Not available 01/28/2023 07:23:41 Father Heart disease [id number] Not available 01/28/2023 07:23:41 Mother Hypertensive disorder [id number] Not available 01/28/2023 07:23:41 Mother Family history of stroke [email or web address] Not available 2023 16:39:53 Unspecified Relation Kidney disease [id number] Not available 01/28/2023 07:23:41 Notes:Diabetes, HTN. No mir st, ovary cancer Medical History Condition Response ARTHRITIS Y EDEMA Y DIABETES, TYPE Y Gynecological History Statement/Question Response Dislike of Light during Menstrual Headac he N Menses Monthly N Abnormal Pap N Current Control Method None Obstetrics History GPAL:G 0 P 0 0 0 0 Immunizations Vaccine Type Date Status Note Provider Nam e and Address Organization Details Recorded Time COVID-19 vaccine, vector-nr, rS-Ad26, PF, 0.5 mL 02/20/2021 completed Not Available [facility] 3 07:35:19 Influenza, split virus, quadrivalent, PF 08/26/2022 completed Not Available [facility] 07:[facility]:20 Tdap 04/16/2015 completed [facility] 01/28/[facility]23 07:35:20 Past Encounters Encounter ID Performer Location Encounter Start Date Encounter Closed Date Diagnosis/Indication Diagnosis SNOMED-CT Code Diagnosis ICD10 Code Diagnosis Note [id number] [facility] [place] [address] [place] [address] 05/01/2021 00:00:00 05/02/2021 13:39:29 [id number] [facility] [place] [address] [place] [address] 05/08/2021 00:00:00 05/28/2021 17:00:10 [id number] [facility] [place] [address] [place] [address] 09/20/2021 00:00:00 09/20/2021 19:58:22 [id number] [facility] General Surgery 2044 [facility] [address] [address] 10/01/2021 00:00:00 10/01/2021 14:36:16 [id number] [facility] [place] [address] [place] [address] 10/18/2021 00:00:00 10/18/2021 18:01:10 [id number] [facility] [place] [address] [place] [address] 04/14/2022 00:00:00 04/14/2022 08:23:15 [id number] [facility] [place] [address] [place] [address] 06/10/2022 00:00:00 06/10/2022 17:55:00 [id number] [facility] [place] [address] [place] [address] 08/12/2022 00:00:00 08/12/2022 11:37:38 [id number] [facility] [place] [address] [place] [address] 08/26/2022 00:00:00 08/26/2022 13:58:41 [id number] [facility] [address] [place] [address] 12/09/2022 00:00:00 12/09/2022 08:28:28 [id number] JARED Amor [address] [place] [address] 04/17/2023 10:42:35 04/17/2023 11:09:57 Cervical lymphadenopathy [id number] R59.0 Present for last few months.Alex l do steroid taper to see if symptoms improved.I f no improvemen t will plan to do US to evaluate further. Pain of ri ght shoulder joint [id number] M25.511 Most likely RTC strain/bur sitis. Good ROM and strength.W ill do course of steroids, work on home stretches. If no improvemen t will plan for PT/imaging /injection s. [id number] CLAUDE Storm [facility] Primary [address] [place] [address] 06/22/2023 11:18:48 06/22/2023 12:00:06 Shoulder joint pain [id number] M25.519 Been an issue a lot more in the past few weeks with holding new grandson. Pt opts to get xray prior to receiving injections . Will continue otc tylenol/ib uprofen until treated. One more trial of prednisone until xray completed. PT to be ordered after reviewing xray and receiving injection [id number] Ashlie Coe MD [facility] Primary Care [address] [place] [address] 03/03/2024 10:58:36 03/03/2024 11:49:06 Degeneration of lumbar intervertebral disc [id number] M51.36 significan t concern for lumbar spine claudicati onneed MRI lumbar spine for further evaluation Gabapentin 300 mg bidprednis one taper with foodreview ed s/s that warrant urgent/ilda rgent eval in meantime [id number] Ashlie Coe MD [facility] Primary Care [place]y sanchez [address] [facility] [address] [place] [address] 04/04/2024 16:39:28 04/04/2024 16:56:04 [id number] JEAN PAUL Stephens-Tyra [facility] Primary Care [place]y [place] [address] [facility] [address] [place] [address] 06/06/2024 10:50:36 06/06/2024 11:12:09 Unintentional weight loss [id number] R63.4 discussed diet habits with patient, getting plenty of meats and vegetables and ensuring that she has an adequate caloric intake. will check thyroid labs. Type 2 regan betes mellitus [id number] E11.9 uncontroll ed DM, does not take medication s. Adult heal th examination [id number] Z00.00 Health Concerns Section Related Observation LastModified by Organization Detai ls LastModified Time None Recorded Concern Status LastModified by Organization Details LastModified Time None Recorded Advance Directives Directive N: Payers Encounter Date Sequence Insurance Name Policy Number Policy Valles Covered Member ID Valles Member ID Guarantor Name 04/17/2023 1 [facility] [id number] Rishi Cooper [id number] Celina E Blood 04/17/2023 1 [employer] [id number] Celina E Blood [id number] Celina E Blood 06/22/2023 1 [employer] [id number] Celina E Blood [id number] Celina E Blood 03/03/2024 1 [facility] [id number] Rishi Blood [id number] Celina E Blood 04/04/2024 1 [place] [id number] Rishi Blood [id number] Celina E Blood 06/06/2024 1 [facility] [id number] Rishi Blood [id number] Celina E Blood Notes Date Note Type Note Provider Name and Address Organization Details Recorded Time 04/17/2023 text/html Pt. here with multiple complaints. -She states she has had a swollen lymph node on the left side of her neck that has not gone down. It has been there for months. She is not sure if it fluctuates in size.-She has been having trouble with her right shoulder for the last few months. Denies any injury. She will take otc pain relievers when needed and lidocaine patches. She has tried doing some stretching at home. JARED Amor [address], [facility] [address], [place], [address], [facility] [employer] [facility] 04/17/2023 11:08:52 06/22/2023 text/html Pt is here with c/o right shoulder pain 0/10 at rest, 10/10 when its at its worse. Currently uses tylenol/ibuprofen to manage-notes relief. Has been an issue since November of this year at least. ROM and strength are limited to pain. No complaints of numbness and tingling. No hx of accident/event to the extremity. CLAUDE Storm [address], [facility] [address], [place], [address], [facility] [employer] [facility] 06/22/2023 12:15:27 03/03/2024 text/html has had pain rig ht groin, leg, hip for a few months. Had some initial pain that would come and go. She did have a fall up the stairs but no other injury or overuse. Pain now constant, hard to even drive pushing down pedal down. +weakness-she has fallen a few times when her right leg gives out. +numbness/tingling in toes on right foot. Ashlie Coe MD [address], [facility] [address], [place], [address], [facility] [employer] [facility] 03/03/2024 11:47:05 06/06/2024 text/html Celina Blood is a 48 yr old female that presents to the office with complaints of rapid weight loss over the last month. Patient reports she has lost approximately 10 pounds over the last month without trying. Patient reports she is concerned because she has typically been 170 pounds sine she was 32. Patient denies symptoms related to weight loss such as fatigue, body aches, chills, hot flashes. Patient reports she follows a normal diet of meats, vegetables and fruits. Patient primarily drinks Pepsi. Patient states she is due for labs. Patient reports she is diabetic and does not take any medications.Labs-or dered 06/06/23Mammogram-de clinedFlu Booh-gnncrfkzVgei-p nsure Lisa Frias, [employer] [address] [facility], [facility] [address], [place], [address], [place] [employer] [facility] 06/06/2024 11:26:20 OBGyn Episode No OBEpisode recorded.
--- OUTSIDE RECORDS SUMMARY | 2025-03-08 17:08 | XMS_ITS | Clinical Summary ---
Author Organization [facility] Address [address] [place] [address] Phone Care Team Providers Care Inventory Controller Name Role Phone Ashlie Coe MD Primary Care Provider + Allergies No known active allergies Medications citalopram (CeleXA) 40 mg tablet Take 40 mg by mouth daily. 04/03/2024 Active amitriptyline (ELAVIL) 100 mg tablet Take 100 mg by mouth nightly as needed. 04/03/2024 Active gabapentin (NEURONTIN) 300 mg capsule Take 300 mg by mouth 2 times daily. 03/30/2024 Active ACETAMINOPHEN ORAL Take by mouth. Active ibuprofen (IBU) 800 mg tablet Take 800 mg by mouth every 6 hours as needed for Pain, Mild. Active Active Problems Problem Noted Date Diagnosed Date Low back pain 04/18/2024 Assessment & Plan (04/19/2024 12:24 PM CDT): Patient has low back pain which may be related to her spondylolisthesis or antalgic gait from hip problems. She has some urinary symptoms of unclear origin as there is no significant compression of the nerve roots to explain this from a spinal cause. Encounters Date Type Department Care Team Description 02/15/2025 External Device Data [facility] ABSTRACTION Provider, Abstract 02/07/2025 External Device Data [facility] ABSTRACTION Provider, Abstract 02/07/2025 External Device Data [facility] ABSTRACTION Provider, Abstract 02/04/2025 External Device Data [facility]STRACTION Provider, Abstract 02/03/2025 External Device Data [facility] ABSTRACTION Provider, Abstract 01/31/2025 External Device Data [facility] ABSTRACTION Provider, Abstract 01/17/2025 External Device Data [facility] ABSTRACTION Provider, Abstract 12/21/2024 External Device Data [facility] ABSTRACTION Provider, Abstract 12/20/2024 External Device Data [facility] ABSTRACTION Provider, Abstract 12/13/2024 External Device Data [facility] ABSTRACTION Provider, Abstract from Last 3 Months Family History Relation Name Status Comments Father Alive Mother Alive Social History Tobacco Use Types Packs/Day Years Used Date Smoking Tobacco: Every Day Cigarettes Smokeless Tobacco: Never Tobacco Cessation:Ready to Q uit: Not Asked; Counseling Given: Not Answered Alcohol Use Standard Drinks/Week Comments Never 0 (1 standard drink = 0.6 oz pur e alcohol) Comments Unknown Sex and Gender Information Value Date Recorded Sex Assigned at Not on file Legal Sex Female 2:42 PM CDT Gender Identity Not on file Sexual Orientation Not on file Last Filed Vital Signs Vital Sign Reading Time Taken Comments Blood Pressure 134/85 08/16/2024 8:12 AM CDT Pulse 86 08/16/2024 8:12 AM CDT Temperature 36.4 C (97.6 F) 08/16/2024 8:12 AM CDT Respiratory Rate 16 08/16/2024 8:12 AM CDT Oxygen Saturation 98% 08/16/2024 8:12 AM CDT Inhaled Oxygen Concentration - - Weight 72.2 kg (159 lb 3.2 oz) 08/16/2024 8:12 A M CDT Height 157.5 cm (5' 2 ) 08/16/2024 8:12 AM CDT Body Mass Index 29.12 08/16/2024 8:12 AM CDT Plan of Treatment Health Maintenance Due Date Last Done Comments PNEUMOCOCCAL VACCINE 0-49 YEARS (1 of 2 - PCV) 983 DIABETES ANNUAL FOOT EXAM 1995 DIABETES ANNUAL RETINAL EXAM 1995 DIABETES HBA1C Q 6 MONTHS 1995 DIABETES MICROALBUMIN ANNUAL SCREEN 1995 LDL CHOLESTEROL ANNUAL 1995 HEPATITIS B VACCINES (1 of 3 - 19+ 3-dose series) 01/1996 HPV/Cotest (21-29) 1998 PAP SMEAR 1998 CERVICAL CANCER SCREENING 2007 HPV/Cotest (30-65) 2007 PAP SMEAR 2007 BREAST CANCER SCREENING 2017 COLORECTAL SCREENING 2022 Colorectal Cancer Screening 2022 FIT-DNA Q 3 years 2022 FIT/FOBT Q 1 year 2022 Flex Sig/CT Colonography Q 5 years 2022 INFLUENZA VACCINE (#1) 2024 08/26/2022 DTAP/TDAP/TD VACCINES (2 - Td or Tdap) 04/16/2025 Insurance [facility] [id number] Care Teams Inventory Controller Relationship Specialty Start Date End Date Ashlie Coe MD [address] [place] [id number] PCP - General Family Practice 04/19/24
--- NOTE | 2025-03-08 17:45 | PC.NURSE ---
Pt complains of neck pain, L upper chest bruising, RUQ pain and R hand pain.
[2025-03-08 18:24] VITALS: BP 142/80; PULSE 94; RESP 16; O2SAT 98
--- NOTE | 2025-03-08 19:06 | PC.NURSE ---
Pt ambulated to ER front office secretary desk wanting to know how much longer until she will be seen by a provider. This RN told her she was unable to give a time frame but was hopeful it would be soon. Pt then ambulated out requesting her c-collar to be taken off. This RN advised her it was best to wait until assessed by a provider and results from ct scans/x-rays were received as if her neck were to be fractured she could be at risk for paralysis. Pt then began cussing at this RN. This RN attempted deescalation but was unsuccessful. photograph enlarger aware of siltation and stated the security shift supervisor doc would be seeing them soon.
[2025-03-08 19:27] VITALS: BP 191/106; PULSE 104; RESP 16; TEMP 36.7; O2SAT 96
--- NOTE | 2025-03-08 19:46 | PC.NURSE ---
Patient states that she has had a hysterectomy back in 2009.
[2025-03-08 19:50] LABS: Basophils Absolute Auto 0.1 K/mm3 (0.0-0.1); Basophils Percent Auto 0.6 % (0.2-1.2); Eosinophils Absolute Auto 0.6 K/mm3 (0-0.3); Eosinophils Percent Auto 4.2 % (0-4.4); Hematocrit 42.2 % (37.0-47.0); Immature Granulocyte Absolute 0.05 K/mm3 (0.00-0.031); Immature Granulocyte Percent A 0.4 % (0-0.5); Lymphocytes Absolute Auto 4.57 K/mm3 (0.9-3.2); Lymphocytes Percent Auto 35.3 % (18.3-44.2); Mean Corpuscular HGB Conc 33.2 g/dl (32-36); Mean Corpuscular Hemoglobin 29.7 pg (26-34); Mean Corpuscular Volume 89.6 fl (80-100); Mean Platelet Volume 9.2 fl (7.4-10.4); Monocytes Absolute Auto 0.5 K/mm3 (0.1-0.6); Monocytes Percent Auto 3.9 % (2.6-8.5); Neutrophils Absolute Auto 7.2 K/mm3 (1.3-6.7); Neutrophils Percent Auto 55.6 % (45.5-73.1); Platelet Count Result 226 k/mm3 (150-375); Red Blood Count 4.71 M/mm3 (4.2-5.4); Red Cell Distribution Width 12.5 % (11.5-14.5)
[2025-03-08 20:03] LABS: Alanine Aminotransferase 41 U/L (6-35); Albumin Level 4.6 g/dL (3.5-5.1); Alkaline Phosphatase 101 U/L (38-126); Anion Gap 8 mmol/L (4-12); Aspartate Amino Transferase 37 U/L (14-36); Bilirubin,Total 0.3 mg/dL (0.2-1.3); Blood Urea Nitrogen 5 mg/dL (7-17); Calcium 9.3 mg/dL (8.4-10.2); Carbon Dioxide 26 mmol/L (22-30); Chloride 102 mmol/L (98-107); Estimated Glomerular Filt Rate > 60; Glucose 222 mg/dL (65-110); Potassium 4.1 mmol/L (3.4-5.0); Sodium 136 mmol/L (137-145)
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
[2025-03-08 20:20] LABS: Add Urine Microscopic? YES; Appearance Urine Cloudy (Clear); Bacteria Urine 4+ /hpf; Bilirubin Urine Negative (Negative); Blood Urine Negative (Negative); Budding Yeast Urine Present /hpf; Color Urine Yellow (Yellow); Glucose Urine UA 2+ mg/dL (Negative); Ketones Urine Negative (Negative); Leukocyte Esterase Ur 2+ LEU/UL (Negative); Nitrate Urine Positive (Negative); Non Pathogenic Casts 0-2; Protein Urine Negative (Negative); RBC Urine 0-2 /hpf (0-2); Specific Grav Ur 1.015 (1.001-1.035); Squamous Epithelial Cell Urine Few /hpf (Few); Urobilinogen Urine 0.2 mg/dL (<2.0); WBC Urine 51-100 /hpf (0-3)
--- OUTSIDE RECORDS SUMMARY | 2025-03-08 20:28 | XMS_ITS | Clinical Summary ---
Author Organization [facility] Address [address] [place] [id number] Care Team Providers Care Paint Spray Inspector Name Role Phone Unavailable Primary Care Provider Unavailabl e Social History Tobacco Use Types Packs/Day Years Used Date Smoking Tobacco: Never Assessed Comments Unknown Sex and Gender Information Value Date Recorded Sex Assigned at Not on file Legal Sex Female 11:23 AM STEWARD/STEWARDESS SECOND Gender Identity Not on file Sexual Orientation [...] patient's age to complete this topic Insurance * Guarantor: Celina Blood Account Type Relation to Patient Date of Phone Billing Address Personal/Family Self [address] [place] [id number] [employer] on file * Guarantor: Celina Blood Account Type Relation to Patient Date of Phone Billing Address Personal/Family Self [address] [place] [address] Member Subscriber Plan / Payer (Ef fective 2017-Present) Name:Celina Blood Relation to Subscriber:Self Name:Celina Blood Payer ID:[id number] (NAIC) Type:Not on file
--- OUTSIDE RECORDS SUMMARY | 2025-03-08 20:28 | XMS_ITS ---
Author Organization Unknown Medications Medication Instructions Effective Dates (start - stop) Status 0.25 MG, 0.5 MG Dose 1.5 ML semaglutide 1.34 MG/ML Pen Injector [Ozempic] 0930-95-30Z65:00:00.000+00:0 0 - Completed 0.25 MG, 0.5 MG Dose 1.5 ML semaglutide 1.34 MG/ML Pen Injector [Ozempic] [id number]:00:00.000+00:0 0 - Completed 0.5 ML Bordetella pertussis filamentous hemagglutinin vaccine, inactivated 0.016 MG/ML / Bordetella pertussis pertactin vaccine, inactivated 0.005 MG/ML / Bordetella pertussis toxoid vaccine, inactivated 0.016 MG/ML / diphtheria toxoid vaccine, inactivated 5 UNT/ML / tetanus toxoid vaccine, inactivated 10 UNT/ML Prefilled Syringe [Boostrix] [id number]:00:00.000+00:0 0 - Completed Patient Care team information Name Category Status Period Participants - - Proposed period not known -
--- OUTSIDE RECORDS SUMMARY | 2025-03-08 20:29 | XMS_ITS | Clinical Summary ---
Author Organization [facility] Address [address] [place] [address] Phone Care Team Providers Care Marketing Agent Name Role Phone Ashlie Coe MD Primary [...] (2 - Td or Tdap) 04/16/2025 Insurance [facility] [id number] Care Teams Marketing Agent Relationship Specialty Start Date End Date Ashlie Coe MD [address] [place] [id number] PCP - General Family Practice 04/19/24
[2025-03-08 22:12] VITALS: BP 147/87; PULSE 97; RESP 16; O2SAT 94
== END 2025-03-08 22:15 | disposition home or self-care (01) ==
PROVIDERS: Emergency Provider Emergency Medicine
DX: R07.89 Other chest pain (principal); F17.210 Nicotine dependence, cigarettes, uncomplicated; E11.9 Type 2 diabetes mellitus without complications; E78.5 Hyperlipidemia, unspecified; F41.9 Anxiety disorder, unspecified
CPT/HCPCS: 36415; 70450; 71260; 72125; 73130; 73562; 74177; 80053; 81001; 85025; 87086; 87186; 99284; Q9967